=== PATIENT | male | born 1965 | race Hispanic/Latino ===

== ENCOUNTER 2025-08-07 12:23 | Emergency (ER) | payer SELFPAY ==
[2025-08-07] MEDS ORDERED: Acetaminophen 500 MG TAB ONE (15:58)
== END 2025-08-07 17:30 | disposition home or self-care (01) ==
LOC: ERS 12:23
DX: J68.9 Unspecified respiratory condition due to chemicals, gases, fumes and vapors (principal); I10 Essential (primary) hypertension; Z79.899 Other long term (current) drug therapy
CPT/HCPCS: 93005; 99284